=== PATIENT | female | born 1965 | race Caucasian/White ===

== ENCOUNTER 2017-06-21 19:29 | Emergency (ER) | payer OTHER ==
[2017-06-21 19:41] VITALS: BP 146/97
--- NOTE | 2017-06-21 20:25 | RAD ---
Indication: RIGHT shoulder pain following injury playing hockey. Comparison: June 02, 2017 RIGHT shoulder radiographs and June 15, 2017 MRI. Technique: Internal and external rotation AP and scapular Y views RIGHT shoulder. AP and cephalad oblique views of the RIGHT clavicle. Report: Normal acromioclavicular and glenohumeral joint alignment. Top normal transverse gap at the acromioclavicular joint. Unremarkable sternoclavicular joint alignment. Negative for fracture. Negative for stigmata of calcific tendinopathy. Mild soft tissue swelling over the AC joint. IMPRESSION: Negative for fracture or malalignment at the shoulder or clavicle..
[2017-06-21] MEDS ORDERED: Ibuprofen TAB* 600 MG PO ONE (20:55)
[2017-06-21] MEDS ORDERED: Cyclobenzaprine TAB* 10 MG PO ONE (21:15)
--- NOTE | 2017-06-21 22:08 | ED ---
Upper Extremity Pain - HPI Summary HPI Summary: Patient presents to the Ed with CC of R shoulder pain after being shoved into a wall during a hockey game 1 hour prior to arrival. She notes to worsening pain in the posterior shoulder over the scapula but just inferior to the AC joint. Denies pain directly over the AC joint or clavicle. ROM intact but unable to abduct past 90 degrees. Pain is 7/10, constant and better with ibuprofen. Ibuprofen taken just before arrival. She denies any other and all injuries/ pain. She denies blood thinners. She recently had an MRI of the shoulder and has a follow up with her ortho, Dr. Jauregui in 2 days. given splint on arrival - History of Current Complaint Chief Complaint: EDShoulderCMeir Stated Complaint: RIGHT SHOULDER INJURY Time Seen by Provider: 06/21/17 19:56 Hx Obtained From: Patient Mechanism Of Injury: Blunt Trauma Onset/Duration: Started Minutes Ago Timing: Constant Severity Initially: Moderate Severity Currently: Moderate Pain Location: Shoulder Character: Aching Aggravating Factor(s): Movement, Abduction, Adduction Alleviating Factor(s): Rest, Ice Associated Signs & Symptoms: Positive: Negative. Negative: Numbness/Tingling Related History: Dominant Hand Right - Risk Factors Non-Orthopedic Risk Factor: Negative DVT Risk Factors: Negative Septic Arthritis Risk Factor: Negative Compartment Syndrome Risk Factors: Pain - Allergies/Home Medications Allergies/Adverse Reactions: Allergies Allergy/AdvReac Type Severity Reaction Status Date / Time No Known Allergies Allergy Verified 06/10/17 15:11 PMH/Surg Hx/FS Hx/Imm Hx Previously Healthy: Yes Endocrine/Hematology History: Denies: Hx Diabetes Cardiovascular History: Denies: Hx Hypertension, Hx Pacemaker/ICD History: Denies: Hx Renal Disease Sensory History: Denies: Hx Hearing Aid Psychiatric History: Denies: Hx Panic Disorder - Cancer History Cancer Type, Location and Year: THYROIDECTOMY Hx Chemotherapy: No Hx Radiation Therapy: Yes - RADIOACTIVE IODINE - Surgical History Surgery Procedure, Year, and Place: 2 C SECTION. THYROIDECTOMY. T & A - Immunization History Date of Tetanus Vaccine: unknown Date of Influenza Vaccine: 04/2017 Hx Pertussis Vaccination: No Immunizations Up to Date: Unable to Obtain/Confirm Infectious Disease History: No Infectious Disease History: Denies: Traveled Outside the [place] in Last 30 Days - Social History Occupation: Employed Full-time Lives: With Family Alcohol Use: Weekly Hx Substance Use: No Substance Use Type: Reports: None Hx Tobacco Use: No Smoking Status (MU): Never Smoked Tobacco Review of Systems Constitutional: Negative Negative: Fever, Chills, Fatigue Eyes: Negative Cardiovascular: Negative Respiratory: Negative Genitourinary: Negative Positive: no symptoms reported, see HPI Positive: Arthralgia - right posterior shoulder, Myalgia Neurological: Negative Psychological: Normal All Other Systems Reviewed And Are Negative: Yes Physical Exam Triage Information Reviewed: Yes Vital Signs On Initial Exam: Initial Vitals Temp Pulse Resp BP Pulse Ox 98.4 F 80 18 146/97 96 06/21/17 19:37 06/21/17 19:37 06/21/17 19:37 06/21/17 19:37 06/21/17 19:37 Vital Signs Reviewed: Yes Appearance: Positive: Well-Appearing, Well-Nourished Skin: Positive: Warm, Skin Color Reflects Adequate Perfusion Head/Face: Positive: Normal Head/Face Inspection Eyes: Positive: EOMI, LOLI, Conjunctiva Clear Neck: Positive: Supple, No Lymphadenopathy Respiratory/Lung Sounds: Positive: Clear to Auscultation, Breath Sounds Present Cardiovascular: Positive: Pulses are Symmetrical in both Upper and Lower Extremities Musculoskeletal: Positive: Pain @ - right posterior shoulder on palpation; unable to abduct the arm past 90 degrees. active ROM with pain. Unable to abduct with shoulder with passive ROM past 45 degrees. Neurological: Positive: Speech Normal Psychiatric: Positive: Normal, Affect/Mood Appropriate - [place] Coma Scale Coma Scale Total: 15 Diagnostics - Vital Signs Vital Signs Temp Pulse Resp BP Pulse Ox 06/21/17 19:37 98.4 F 80 18 146/97 96 - Laboratory Lab Statement: Any lab studies that have been ordered have been reviewed, and results considered in the medical decision making process. Course/Dx - Course Course Of Treatment: right posterior shoulder on palpation; unable to abduct the arm past 90 degrees. active ROM with pain. Unable to abduct with shoulder with passive ROM past 45 degrees. Xray obtained which shows Report: Normal acromioclavicular and glenohumeral joint alignment. Top normal transverse. gap at the acromioclavicular joint. Unremarkable sternoclavicular joint alignment. Negative for fracture. Negative for stigmata of calcific tendinopathy. Mild soft tissue. swelling over the AC joint. IMPRESSION: Negative for fracture or malalignment at the shoulder or clavicle.. I discussed the possibility of an AC joint separation vs muscle strain. Will splint at this time. Patient has a follow up with Dr. Jauregui on Thursday and will discuss the possibility/need for further imaging. - Diagnoses Differential Diagnosis/HQI/PQRI: Positive: Fracture (Open), Fracture (Closed), Strain, Sprain Provider Diagnoses: Acute pain of right shoulder due to trauma Discharge - Discharge Plan Condition: Stable Disposition: HOME Prescriptions: Cyclobenzaprine TAB* [Flexeril TAB*] 10 mg PO BID PRN #10 tab PRN Reason: Pain Patient Education Materials: Shoulder Sprain (ED) Referrals: Toney Appiah MD [Primary Care Provider] - Additional Instructions: Ibuprofen 600mg three times daily Remain in sling until follow up with Dr. Juventino Hood for muscle stiffness - do not drive or work on this as it may make you drowsy Ice and heat intermittently
== END 2017-06-21 21:31 | disposition home or self-care (01) ==
LOC: ED 19:29
DX: M25.511 Pain in right shoulder (principal); Y04.8XXA Assault by other bodily force, initial encounter; Y92.330 Ice skating rink (indoor) (outdoor) as the place of occurrence of the external cause
CPT/HCPCS: 99282; A9270-GY